=== PATIENT | female | born 1965 | race Caucasian/White ===

== ENCOUNTER 2016-11-20 21:35 | Emergency (ER) | payer SELFPAY ==
[~2016-11-20] VITALS: Ht 160 cm; Wt 58.0 kg
[2016-11-20 21:38] VITALS: Ht 160 cm; Wt 58.0 kg
== END 2016-11-21 00:33 | disposition left against medical advice (07) ==
LOC: FTE 21:35
DX: Z53.21 Procedure and treatment not carried out due to patient leaving prior to being seen by health care provider (principal)